=== PATIENT | female | born 1975 | race African-American/Black ===

== ENCOUNTER 2017-06-18 17:25 | Emergency (ER) | payer MEDICAID, OTHER ==
[~2017-06-18] VITALS: Ht 162.6 cm; Wt 108.0 kg
[~2017-06-18 17:25] MED LIST: AMLO5TAB22 PO; HYDR-2768 PO; IBUP800T23 PO; METH500T3 PO
[2017-06-18 17:30] VITALS: BP 192/82; PULSE 104; RESP 18; TEMP 99; O2SAT 98
[2017-06-18] MEDS ORDERED: HYDR25TA5 PO (17:51)
[2017-06-18] MEDS ORDERED: AMLO5TAB2 PO (17:51)
--- NOTE | 2017-06-18 18:38 | PD ---
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 Patient states that she just started using condoms and believes that the irritation has contributed to this infection. Patient has a history of bacterial vaginosis and her symptoms are similar to previous episodes. Patient states she has one partner. States her last menstrual period was last week. Denies fever, chills. Her last Pap was 2 years ago. PFSH Past Medical History Asthma: Yes Cardiovascular Problems: Yes (HTN) Diminished Hearing: No Hypertension: Yes Immunizations Current: Yes Tetanus Vaccination: Unknown ?: Not LMP: 06/11/17 : 4 Para: 3 Miscarriage: 1 Tubal Ligation: Yes (1999) Past Surgical History Section: Yes (1994, 1996, 1997) Gynecologic Surgery: Yes (csection due to to toxemia) Social History Alcohol Use: Yes (SOCIALLY) Tobacco Use: No Substance Use: No Allergies-Medications (Allergen,Severity, Reaction): Coded Allergies: No Known Allergies (Unverified Adverse Reaction, Unknown, 06/18/17) Reported Meds & Prescriptions Reported Meds & Active Scripts Active Fluconazole 150 Mg Tab 150 Mg PO ONCE Take 2-3 days after last antibiotic pill if symptoms develop. Metronidazole 500 Mg Tab 500 Mg PO TID 7 Days Reported Amlodipine (Amlodipine Besylate) 5 Mg Tab 5 Mg PO DAILY Hydrochlorothiazide 25 Mg Tab 25 Mg PO DAILY Review of Systems Except as stated in HPI: all other systems reviewed are Neg Physical Exam Narrative GENERAL: Well-nourished, well-developed patient. SKIN: Focused skin assessment warm/dry. HEAD: Normocephalic. EYES: No scleral icterus. No injection or drainage. NECK: Supple, trachea midline. No JVD or lymphadenopathy. CARDIOVASCULAR: Regular rate and rhythm without murmurs, gallops, or rubs. GENITOURINARY: Normal external genitalia without lesions or erythema. Vaginal vault green and white drainage. Cervical os was closed without drainage. MUSCULOSKELETAL: No cyanosis, or edema. BACK: Nontender without obvious deformity. No CVA tenderness. Data Data Last Documented VS Vital Signs Date Time Temp Pulse Resp B/P (MAP) Pulse Ox O2 Delivery O2 Flow Rate FiO2 06/18/17 19:17 06/18/17 17:52 18 06/18/17 17:30 99.0 104 98 Room Air Orders Orders Gc And Chlamydia Pcr (06/18/17 18:36) Wet Prep Profile (06/18/17 18:36) Ed Discharge Order (06/18/17 19:00) Labs Laboratory Tests Test 06/18/17 18:30 Clue Cells (Wet Prep) PRESENT Vaginal Trichomonas (Wet Prep) NONE SEEN Vaginal Yeast (Wet Prep) NONE SEEN MDM Medical Decision Making Medical Screen Exam Complete: Yes Emergency Medical Condition: Yes Differential Diagnosis Bacterial vaginosis, chlamydia, gonorrhea, vaginal candidiasis Narrative Course 42-year-old female presents to the emergency department complaining of a white vaginal discharge with odor for 3-4 days. Patient states that she just started using condoms and believes that the irritation has contributed to this infection. Patient has a history of bacterial vaginosis and her symptoms are similar to previous episodes. Patient states she has one partner. States her last menstrual period was last week. Denies fever, chills. Her last Pap was 2 years ago. Vital signs stable Physical exam consistent with bacterial vaginosis. We'll prescribe patient metronidazole. Because patient states she yeast infections of antibiotics, will prescribe fluconazole as well. Patient to follow up with her primary care physician within 2-3 days. If her symptoms persist or worsen return to the emergency department. Diagnosis Primary Impression: Bacterial vaginosis Referrals: [facility] Additional Instructions: Follow-up with primary care physician within 2 days. Take all medication as prescribed Scripts Fluconazole (Fluconazole) 150 Mg Tab 150 MG PO ONCE for Infection, #1 TAB 0 Refills Take 2-3 days after last antibiotic pill if symptoms develop. Prov: Vicki Guerrier DO 06/18/17 Metronidazole (Metronidazole) 500 Mg Tab 500 MG PO TID for Infection for 7 Days, TAB 0 Refills Prov: Vicki Guerrier DO 06/18/17 Disposition: 01 DISCHARGE HOME Condition: Stable Vandana Valdez Jun 18, 2017 18:38
[2017-06-18] MEDS ORDERED: METR1TAB76 PO (18:45)
[2017-06-18] MEDS ORDERED: FLUC150T PO (18:45)
== END 2017-06-18 19:18 | disposition home or self-care (01) ==
LOC: NEPD 17:25
DX: N76.0 Acute vaginitis (principal); B96.89 Other specified bacterial agents as the cause of diseases classified elsewhere; I10 Essential (primary) hypertension
CPT/HCPCS: 87210; 99284